=== PATIENT | male | born 1970 ===

== ENCOUNTER 2021-02-12 19:06 | Emergency (ER) | payer OTHER ==
[~2021-02-12] VITALS: Ht 193 cm; Wt 113.4 kg
[2021-02-12 19:08] VITALS: BP 150/100
[2021-02-12] MEDS ORDERED: IBUPROFEN 800 MG TAB PO ONE (20:00)
== END 2021-02-12 21:05 | disposition home or self-care (01) ==
LOC: ER 19:06
DX: S83.91XA Sprain of unspecified site of right knee, initial encounter (principal); M13.861 Other specified arthritis, right knee; X50.0XXA Overexertion from strenuous movement or load, initial encounter; Y93.89 Activity, other specified; Y92.89 Other specified places as the place of occurrence of the external cause; Y99.8 Other external cause status
CPT/HCPCS: 29505; 73562